=== PATIENT | female | born 1960 | race Caucasian/White ===

== ENCOUNTER 2018-10-24 14:55 | Observation (INO) ==
[2018-10-24] MEDS ORDERED: Sod Chloride 0.9% Inj 1,000 ML IV.SIG ONE (15:27)
--- NOTE | 2018-10-24 15:48 | ED ---
HPI General Chief Complaint: Recheck/Abnormal Lab/Rx Stated Complaint: Medical Time Seen by Provider: 10/24/18 15:27 Source: patient, family and EMS Mode of arrival: EMS Limitations: language barrier History of Present Illness HPI narrative: Patient is a 58-year-old female, past medical history cirrhosis, GERD, who presents with complaint of hypotension. Per report patient had a colonoscopy done today which was done for routine colon cancer screening. Her blood pressure prior to this being initiated was in the low 90s over 50s. During the procedure she did receive propofol and her blood pressure did drop into the 70s. EMS reports blood pressure in the 80s on their arrival and gave her approximately 500 cc fluid. The patient denies any chest pain, abdominal pain, shortness of breath. She feels well and normal but with a dry mouth. Her (whom is interpreting) states that she is acting herself. He states that her BP is normally in the 90s-low 100s systolic. She has been well prior to the procedure today. According to the paperwork, she did have a polypectomy today. complaint: Reports other Initial visit for: other Returns today for: other Symptoms since prior visit: Reports no new symptoms Associated symptoms: Reports none Related Data Home Medications Medication Instructions Recorded Confirmed alprazolam [Xanax] 0.25 mg PO HS 10/24/18 10/24/18 escitalopram oxalate [Lexapro] 5 mg PO DAILY 10/24/18 10/24/18 furosemide [Lasix] 40 mg PO DAILY 10/24/18 10/24/18 lactulose 20 g PO TID 10/24/18 10/24/18 levothyroxine 50 mcg PO DAILY 10/24/18 10/24/18 nadolol 40 mg PO DAILY 10/24/18 10/24/18 pantoprazole [Protonix] 40 mg PO DAILY 10/24/18 10/24/18 propranolol 10 mg PO BID 10/24/18 10/24/18 spironolactone 100 mg PO DAILY 10/24/18 10/24/18 Allergies Allergy/AdvReac Type Severity Reaction Status Date / Time No Known Allergies Allergy Unverified 10/19/18 09:29 Review of Systems ROS: all other systems reviewed are negative [facility] Medical History Medical History Cirrhosis (Acute) Social History Social History Substance History: No History of Abuse Second Hand Smoke Exposure: No Smoking Status: Current every day smoker Tobacco Type: Cigarettes How Often Do You Have a Drink Containing Alcohol: Never Recent Travel in [facility] within the Last 8 Weeks: No Recent Out of Country Travel within the Last 8 Weeks: No Immunization History Tetanus Immunization: Unsure Exam Narrative Exam Narrative: GENERAL: Well-appearing, elderly female in no acute distress SKIN: Focused skin assessment warm/dry. No rashes. HEAD: Atraumatic. Normocephalic. EYES: Pupils equal and round. No scleral icterus. No injection or drainage. ENT: No nasal bleeding or discharge. Mucous membranes pink and moist. NECK: Trachea midline. No JVD. CARDIOVASCULAR: Regular rate and rhythm. No murmur appreciated. Intact and equal peripheral pulses. Normal cap refill. RESPIRATORY: No accessory muscle use. Clear to auscultation. Breath sounds equal bilaterally. GASTROINTESTINAL: Abdomen soft, non-tender. Distended but at her baseline per the (she does have cirrhosis). Hepatic and splenic margins not palpable. MUSCULOSKELETAL: No obvious deformities. No clubbing. No cyanosis. No edema. NEUROLOGICAL: Awake and alert. No obvious cranial nerve deficits. Motor grossly within normal limits. Normal sensation. Normal speech. PSYCHIATRIC: Appropriate mood and affect; insight and judgment normal. Course Reevaluation(s) Reevaluation #1: Patient states she feels normal and wants to go home. Time: 19:05 Reevaluation #2: Patient's states that her BP is normally in the high 80s - low 90s and thus this is normal. They want to go home at this time. Time: 19:21 Initial Documented Vital Signs Temperature 98.8 F 10/24/18 15:22 Pulse Rate 79 10/24/18 15:22 Respiratory Rate 18 10/24/18 15:22 Blood Pressure 85/50 L 10/24/18 15:22 Last Documented Vital Signs Temperature 98.8 F 10/24/18 15:22 Pulse Rate 60 10/24/18 19:27 Respiratory Rate 16 10/24/18 19:27 Blood Pressure 80/50 L 10/24/18 19:27 Pulse Oximetry 96 10/24/18 19:27 Medical Decision Making MDM Narrative Medical decision making narrative: Patient is a 58 yof who presents with complaint of hypotension. She did her colonoscopy prep yesterday and has been NPO. BP in the 90s (her baseline) prior to colonoscopy. After receiving propofol, it decreased to the 70s. It is in the mid-80s on arrival here and she has no complaints at this time. She has been given fluid bolus to which she responded well. Labs and CT showed consolidation in the lungs with a UTI. Patient and were initially insistent on going home and did not want the original workup but eventually agreed to the workup (IV antibiotics, additional fluids) and to stay. She has been given rocephin and azithromycin in addition to additional fluids (as she'd not yet had 30 cc/kg). I spoke with Dr Small, passenger representative concrete wall grinder operator, whom agreed to the admission. Medical Screen Exam Complete: Yes Emergency Medical Condition: Yes Differential Diagnosis Differential Diagnosis: Differential diagnosis includes but is not limited to medication side effect, anemia, perforated viscus. Medical Records Medical records reviewed: Yes I reviewed the patient's medical records. Lab Data Result diagrams: 10/24/18 15:40 10/24/18 15:40 Lab Results 10/24/18 10/24/18 10/24/18 Range/Units 15:40 15:40 19:26 WBC 11.0 (4.0-11.0) th/mm3 RBC 3.09 L (4.00-5.30) mil/mm3 Hgb 11.8 D (11.6-15.3) gm/dL Hct 35.2 (35.0-46.0) % MCV 113.7 H (80.0-100.0) fL MCH 38.1 H (27.0-34.0) pg MCHC 33.5 (32.0-36.0) % RDW 15.1 (11.6-17.2) % Plt Count 179 D (150-450) th/mm3 MPV 10.5 (7.0-11.0) fL Prelim Diff (Auto) Manual diff required WBC Differential Manual diff final Seg Neuts % (Manual) 80 H (16-70) % Band Neuts % (Manual) 2 (0-6) % Lymphocytes % (Manual) 15 (9-44) % Monocytes % (Manual) 3 (0-8) % Abs Neuts (Manual) 9.0 H (1.8-7.7) th/mm3 Differential Comment . Toxic Granulation 2+ H (None) Toxic Vacuolation Present H (None) Platelet Estimate Normal (Normal) Platelet Morphology Normal (Normal) Ovalocytes 1+ H (None) Sodium 133 L (136-145) meq/L Potassium 4.6 (3.5-5.1) meq/L Chloride 103 (98-107) meq/L Carbon Dioxide 22.0 (21.0-32.0) meq/L Anion Gap 8 (5-15) meq/L BUN 23 H (7-18) mg/dL Creatinine 1.00 (0.50-1.00) mg/dL Estimated GFR 57 L (>89) mL/min Random Glucose 102 (74-106) mg/dL Calcium 6.8 L* D (8.5-10.1) mg/dL Calcium Adj for Albumin 8.8 (8.5-10.1) mg/dL Magnesium 1.8 (1.5-2.5) mg/dL Total Bilirubin 3.0 H (0.2-1.0) mg/dL AST 79 H (15-37) U/L ALT 17 (10-53) U/L Alkaline Phosphatase 364 H (45-117) U/L Troponin I Less than 0.02 L (0.02-0.05) ng/mL Total Protein 5.4 L D (6.4-8.2) g/dL Albumin 1.5 L (3.4-5.0) g/dL Lipase 100 (73-393) U/L Urine Color [place] (Yellw/Straw) Urine Clarity Clear (Clear) Urine pH 6.0 (5.0-8.5) Ur Specific [place] Greater than 1.060 H (1.002-1.035) Urine Protein Negative (Neg-Trace) mg/dL Urine Glucose (UA) Negative (Negative) mg/dL Urine Ketones Negative (Negative) mg/dL Urine Occult Blood Negative (Negative) Urine Nitrate Negative (Negative) Urine Bilirubin Negative (Negative) Urine Urobilinogen Less than 2 (Less than 2) mg/dL Ur Leukocyte Esterase Trace H (Negative) Urine RBC 2 (0-3) /hpf Urine WBC 20 H (0-5) /hpf Urine WBC Clumps Rare H (None) Ur Squamous Epith Cells <1 (0-5) /hpf Hyaline Casts 6 (0-3) /lpf Urine Mucus Few H (Occasional) /lpf Micro UA Comment Culture indicated Ur Microscopic Review Not Reportable Urine Culture Comments Culture indicated Imaging Data Radiologist's impression: Abdomen/Pelvis CT 10/24/18 15:27 CONCLUSION: 1. Cirrhotic liver with diffuse inhomogeneity and no discrete mass. 2. Moderate amount of ascitic fluid greatest along the lateral liver margin and pelvis. 3. Small to moderate right pleural effusion with mild consolidation in the right lung base. Discharge Plan Discharge Disposition Patient Disposition: ED Admit(ED Internal Use Only) Discharge Condition Condition: Serious Discharge Order Discharge Orders: ED Use Only Admit Order (Routine); Ordered 10/24/18 Ordered By: Leandra Carrasco Discharge Details Diagnosis: Acute UTI, Acute hypotension, Acute dehydration Physicians Team ED Provider: Leandra Carrasco Primary Care Provider: NON STAFF,PROVIDER Attending Provider: Lanre Small Status ED Status: Admitted Patient
[2018-10-24 16:07] LABS: Hematocrit 35.2 % (35.0-46.0); Hemoglobin 11.8 gm/dL (11.6-15.3); Mean Corpuscular HGB Conc 33.5 % (32.0-36.0); Mean Corpuscular Hemoglobin 38.1 pg (27.0-34.0); Mean Corpuscular Volume 113.7 fL (80.0-100.0); Mean Platelet Volume 10.5 fL (7.0-11.0); Platelet Count 179 th/mm3 (150-450); Red Blood Count 3.09 mil/mm3 (4.00-5.30); Red Cell Distribution Width 15.1 % (11.6-17.2)
--- NOTE | 2018-10-24 16:23 | CT ---
EXAM DATE: 10/24/2018 4:13 PM EST AGE/SEX: 58 years / Female INDICATIONS: Low blood pressure and bilateral leg pain after colonoscopy today CLINICAL DATA: This is the patient's initial encounter. Patient reports that signs and symptoms have been present for 1 day and indicates a pain score of 5/10. MEDICAL/SURGICAL HISTORY: Cirrhosis. None. ORAL CONTRAST: No oral contrast ingested. RADIATION DOSE: 8.29 CTDI (mGy) COMPARISON: No prior exams available for comparison. TECHNIQUE: Multiple contiguous axial images were obtained through the abdomen and pelvis following b olus infusion of 75 ml Omnipaque 350 (iohexol) nonionic water-soluble contrast as a single exam dos e. No oral contrast ingested. Using automated exposure control and adjustment of the mA and/or kV ac cording to patient size, radiation dose was kept as low as reasonably achievable to obtain optimal di agnostic quality images. DICOM format image data is available electronically for review and comparis on. FINDINGS: Lower Lungs: There is a small to moderate right pleural effusion with mild consolidation in the poste rior right lung base. Liver: The liver is cirrhotic with enlarged left lobe and smaller right lobe with lobular outer conto ur. There is diffuse mild heterogeneity with no discrete focal mass or ductal dilatation. There is a moderate amount of ascitic fluid surrounding the liver margin. The gallbladder is partially decompres sed. Spleen: Homogeneous density without enlargement. Pancreas: Unremarkable without mass or calcification. Kidneys: Normal in size and shape. No evidence of solid mass or hydronephrosis. Small cyst extending off the left kidney. Adrenal Glands: Unremarkable. Aorta: The aorta and proximal iliac vessels are grossly unremarkable without aneurysmal dilation. Bowel/Mesentery: No oral contrast was given limiting the sensitivity. The bowel loops are grossly unr emarkable. The cecum and sigmoid colon have a normal configuration. Abdominal Wall: Intact. Retroperitoneum: No evidence of adenopathy in the retrocrural, para-aortic, or deep pelvic regions. Bladder: Contours are smooth. Reproductive Organs: No abnormal masses or calcifications seen. 6 fluid is present in the pelvis quin[place] rounding portions of the uterus. Inguinal: The inguinal region is unremarkable without evidence of adenopathy. Bony Structures: Cynthia, degenerative change and scoliosis are present. CONCLUSION: 1. Cirrhotic liver with diffuse inhomogeneity and no discrete mass. 2. Moderate amount of ascitic fluid greatest along the lateral liver margin and pelvis. 3. Small to moderate right pleural effusion with mild consolidation in the right lung base. Electronically signed by: Aydin Luna MD 10/24/2018 4:21 PM EST
[2018-10-24 16:38] LABS: Alanine Aminotransferase 17 U/L (10-53); Albumin 1.5 g/dL (3.4-5.0); Alkaline Phosphatase 364 U/L (45-117); Anion Gap 8 meq/L (5-15); Aspartate Aminotransferase 79 U/L (15-37); Blood Urea Nitrogen 23 mg/dL (7-18); Calcium 6.8 mg/dL (8.5-10.1); Chloride 103 meq/L (98-107); Glomerular Filtration Rate 57 mL/min (>89); Glucose,Random 102 mg/dL (74-106); Lipase 100 U/L (73-393); Magnesium 1.8 mg/dL (1.5-2.5); Potassium 4.6 meq/L (3.5-5.1); Sodium 133 meq/L (136-145); Total Protein 5.4 g/dL (6.4-8.2)
[2018-10-24] MEDS ORDERED: Calcium Gluconate Inj 1 GM in Dextrose 5% in Water Inj 100 ML IV.SIG ONE ×2 (16:43)
[2018-10-24 16:55] LABS: Monocytes 3 % (0-8)
[2018-10-24 16:58] LABS: Lymphocytes 15 % (9-44); Toxic Granulation 2+
[2018-10-24 16:59] LABS: Platelet Estimate Normal (Normal); Platelet Morphology Normal (Normal); Toxic Vacuolation Present
[2018-10-24 17:01] LABS: Ovalocytes 1+
[2018-10-24] MEDS ORDERED: Sodium Chlor 0.9% Inj 500 ML IV.SIG SCH (19:00)
[2018-10-24 20:01] LABS: Bilirubin,Urine Negative (Negative); Clarity,Urine Clear (Clear); Color,Urine Amber (Yellw/Straw); Glucose,Urine (UA) Negative (Negative); Hyaline Casts,Urine 6 /lpf (0-3); Leukocyte Esterase,Urine Trace (Negative); Mucus,Urine Few /lpf (Occasional); Nitrite,Urine Negative (Negative); Squamous Epithelial Cell,Urine <1 /hpf (0-5)
[2018-10-24] MEDS ORDERED: Azithromycin Inj 500 MG in Sodium Chlor 0.9% Inj 250 ML IV.SIG ONE (20:11)
[2018-10-24] MEDS ORDERED: Sod Chloride 0.9% Inj 1,000 ML IV.SIG SCH (20:15)
[2018-10-24] MEDS ORDERED: Acetaminophen 325 MG Tablet PO PRN (21:15)
[2018-10-24] MEDS ORDERED: Morphine Sulfate Inj 2 MG/ML Vial IV.PUSH PRN (21:15)
[2018-10-24] MEDS ORDERED: Bisacodyl 10 MG Supp RECTAL PRN (21:15)
[2018-10-24] MEDS ORDERED: Temazepam 15 MG Capsule PO PRN (21:15)
--- NOTE | 2018-10-24 21:20 | P.HPCC ---
History of Present Illness Primary Care Physician: PROVIDER NON STAFF History of Present Illness: 58-year-old female, past medical history cirrhosis, GERD, who presents with complaint of hypotension. Per report patient had a colonoscopy done today which was done for routine colon cancer screening. Her blood pressure prior to this being initiated was in the low 90s over 50s. During the procedure she did receive propofol and her blood pressure did drop into the 70s. EMS reports blood pressure in the 80s on their arrival and gave her approximately 500 cc fluid. The patient denies any chest pain, abdominal pain, shortness of breath. She feels well and normal but with a dry mouth. Her states that she is acting herself. He states that her BP is normally in the 90s-low 100s systolic. She has been well prior to the procedure today. According to the paperwork, she did have a polypectomy today. Inpatient Certification: I certify that the inpatient services were ordered in accordance with Medicare regulations governing the order. This includes certification that hospital inpatient services are reasonable and necessary and in the case of services not specified as inpatient-only under 42 CFR 419.22(n), that they are appropriately provided as inpatient services in accordance to with the 2-midnight benchmark under 43 CFR 412.3(e) Estimated Total Length of Stay (Days): 5 Plans for Post Hospital Care: Not yet determined Review of Systems All other systems reviewed negative except as stated in HPI [facility] - History History Provided By: Patient - Medical History Medical History: Medical History (Last Reviewed 10/25/18 @ 00:27 by Glory Su RN) Anxiety Cirrhosis Depression GERD (gastroesophageal reflux disease) Hypokalemia Hypothyroidism - Surgical History Surgical History: Surgical History (Last Updated 10/25/18 @ 00:27 by Glory Su RN) H/O rectal polypectomy Hx of colonoscopy - Tobacco History Second Hand Smoke Exposure: No Tobacco Use In Past 30 Days: No Smoking Status: Current every day smoker Tobacco Type: Cigarettes - Alcohol History How Often Do You Have a Drink Containing Alcohol: Never - Substance Use History Substance History: No History of Abuse - Travel History Recent Travel in the [place] Within the Last 8 Weeks: No Recent Travel Out of the Country Within the Last 8 Weeks: No - Immunization History Tetanus Immunization: Unsure Medications and Allergies Active Medications: Active Medications Acetaminophen (Tylenol) 650 mg PO Q6H PRN PRN Reason: PAIN 1-10 AND/OR FEVER >101F Al Hydroxide/Mg Hydroxide (Milk Of Magnesia Liq) 30 ml PO Q12H PRN PRN Reason: Mild Constipation Albuterol (Duoneb Neb (Prn)) 1 ampul NEB Q2HR NEB PRN PRN Reason: WHEEZING Alprazolam (Xanax) 0.25 mg PO HS [facility] Bisacodyl (Dulcolax Supp) 10 mg RECTAL DAILY PRN PRN Reason: SEVERE CONSITIPATION Chlorhexidine Gluconate (Chlorhexidine 2% Cloth) 3 pack TOPICAL DAILY@0400 BHARAT Stop: 10/30/18 03:59 Chlorhexidine Gluconate (Chlorhexidine 2% Cloth) 3 pack TOPICAL DAILY@0400 PRN PRN Reason: Extra cloth needed Stop: 10/30/18 03:59 Heparin Sodium (Porcine) (Heparin Inj) 5,000 units SQ Q8H [facility] Sodium Chloride (Ns Inj) 1,000 mls @ 154 mls/hr IV.CONT .Q6H30M [facility] Azithromycin 500 mg/ Sodium (Chloride) 250 mls @ 250 mls/hr IV.SIG Q24H BHARAT Ceftriaxone Sodium 1,000 mg/ (Sodium Chloride) 100 mls @ 200 mls/hr IV.SIG Q24H BHARAT Lactulose (Lactulose Liq) 30 ml PO DAILY PRN PRN Reason: SEVERE CONSITIPATION Levothyroxine Sodium (Synthroid) 50 mcg PO DAILY [facility] Morphine Sulfate (Morphine Inj) 2 mg IV.PUSH Q2H PRN PRN Reason: PAIN SCALE 6 TO 10 Non-Formulary Medication (Escitalopram Oxalate [Lexapro]) 5 mg PO DAILY [facility] Ondansetron HCl (Zofran Inj) 4 mg IV.PUSH Q6H PRN PRN Reason: NAUSEA OR VOMITING Pantoprazole Sodium (Protonix) 40 mg PO DAILY [facility] Senna/Docusate Sodium ([place]-Colace) 1 tab PO BID [facility] Sennosides (Senokot) 17.2 mg PO Q12H PRN PRN Reason: Moderate Constipation Sodium Chloride (Ns Flush) 2 ml IV.FLUSH PRN PRN PRN Reason: FLUSH AFTER USING IV ACCESS Sodium Chloride (Ns Flush) 2 ml IV.FLUSH PRN PRN PRN Reason: FLUSH AFTER USING IV ACCESS Sodium Chloride (Ns Flush) 2 ml IV.FLUSH BID BHARAT Temazepam (Restoril) 15 mg PO HS PRN PRN Reason: INSOMNIA Allergies Allergy/AdvReac Type Severity Reaction Status Date / Time No Known Allergies Allergy Unverified 10/19/18 09:29 Home Medications Medication Instructions Recorded Confirmed Type alprazolam [Xanax] 0.25 mg PO HS 10/24/18 10/24/18 History escitalopram oxalate [Lexapro] 5 mg PO DAILY 10/24/18 10/24/18 History furosemide [Lasix] 40 mg PO DAILY 10/24/18 10/24/18 History lactulose 20 g PO TID 10/24/18 10/24/18 History levothyroxine 50 mcg PO DAILY 10/24/18 10/24/18 History nadolol 40 mg PO DAILY 10/24/18 10/24/18 History pantoprazole [Protonix] 40 mg PO DAILY 10/24/18 10/24/18 History propranolol 10 mg PO BID 10/24/18 10/24/18 History spironolactone 100 mg PO DAILY 10/24/18 10/24/18 History Results - Labs CBC & Chem 7: 10/25/18 03:56 10/25/18 03:56 Labs: Short CBC 10/24/18 Range/Units 15:40 WBC 11.0 (4.0-11.0) th/mm3 Hgb 11.8 D (11.6-15.3) gm/dL Hct 35.2 (35.0-46.0) % Plt Count 179 D (150-450) th/mm3 BMP 10/24/18 15:40 Sodium 133 L Potassium 4.6 Chloride 103 Carbon Dioxide 22.0 BUN 23 H Creatinine 1.00 Calcium 6.8 L* D Cardiac Enzymes 10/24/18 Range/Units 15:40 Troponin I Less than 0.02 L (0.02-0.05) ng/mL Liver Function 10/24/18 Range/Units 15:40 Total Bilirubin 3.0 H (0.2-1.0) mg/dL AST 79 H (15-37) U/L ALT 17 (10-53) U/L Alkaline Phosphatase 364 H (45-117) U/L Albumin 1.5 L (3.4-5.0) g/dL Urine 10/24/18 Range/Units 19:26 Urine Color [place] (Yellw/Straw) Urine Clarity Clear (Clear) Urine pH 6.0 (5.0-8.5) Ur Specific [place] Greater than 1.060 H (1.002-1.035) Urine Protein Negative (Neg-Trace) mg/dL Urine Glucose (UA) Negative (Negative) mg/dL - Imaging Impressions Abdomen/Pelvis CT 10/24/18 15:27 CONCLUSION: 1. Cirrhotic liver with diffuse inhomogeneity and no discrete mass. 2. Moderate amount of ascitic fluid greatest along the lateral liver margin and pelvis. 3. Small to moderate right pleural effusion with mild consolidation in the right lung base. Exam Vital signs: Vital Signs 10/24/18 15:22 10/24/18 19:27 Temperature 98.8 F Pulse Rate 79 60 Respiratory Rate 18 16 Blood Pressure 85/50 L 80/50 L Pulse Oximetry 96 Intake & Output 10/24/18 10/24/18 10/25/18 06:59 18:59 06:59 Intake Total 1000 / 1000 710 / 710 Balance 1000 / 1000 710 / 710 Weight 63.503 kg Intake: IV 1000 / 1000 710 / 710 Calcium Gluconate Inj 1 GM In 110 / 110 D5W Inj 100 ML @ 110 mls/hr IV. SIG ONCE ONE Rx#:[id number] NS Inj 1,000 ML @ Wide Open IV. 1000 / 1000 SIG BOLUS ONE Rx#:[id number] NS Inj 500 ML @ 1000 mls/hr IV. 500 / 500 SIG BOLUS BHARAT Rx#:[id number] Rocephin Inj 1,000 MG In NS Inj 100 / 100 100 ML @ 200 mls/hr IV.SIG ONCE ONE Rx#:[id number] - Constitutional no acute distress - Routine HEENT Exam Head: Present: normocephalic, atraumatic Eye: Present: EOMI, PERRL, normal accommodation ENT: Present: mucous membranes moist - Routine Neck Exam Present: supple, full ROM. Absent: JVD, carotid bruit - Routine Respiratory Exam Absent: accessory muscle use, rales, respiratory distress, rhonchi - Routine Cardiovascular Exam Present: RRR, S1, S2 - Routine Abdominal Exam Present: soft, normoactive bowel sounds - Routine Extremities Exam Absent: cyanosis, clubbing, edema - Routine Skin Exam Present: intact. Absent: cyanosis, erythema - Routine Neurological Exam Present: alert, oriented X3, moving all extremities Septic Shock Reassessment Septic shock perfusion: reassessment completed Caprini VTE Risk Assessment Caprini VTE Risk Assessment: Moderate/High Risk (score >= 2) Caprini Risk Assessment Model: Point Value = 1 Point Value = 2 Point Value = 3 Point Value = 5 Age 41-60 Minor surgery BMI > 25 kg/m2 Swollen legs Varicose veins or History of unexplained or recurrent spontaneous Oral contraceptives or hormone replacement Sepsis (< 1 month) Serious lung disease, including pneumonia (< 1 month) Abnormal pulmonary function Acute myocardial infarction Congestive heart failure (< 1 month) History of inflammatory bowel disease Medical patient at bed rest Age 61-74 Arthroscopic surgery Major open surgery (> 45 min) Laparoscopic surgery (> 45 min) Malignancy Confined to bed (> 72 hours) Immobilizing plaster cast Central venous access Age >= 75 History of VTE Family history of VTE Factor V Leiden Prothrombin [id number] Lupus anticoagulant Anticardiolipin antibodies Elevated serum homocysteine Heparin-induced thrombocytopenia Other congenital or acquired thrombophilia Stroke (< 1 month) Elective arthroplasty Hip, pelvis, or leg fracture Acute spinal cord injury (< 1 month) Prophylaxis Regimen: Total Risk Factor Score Risk Level Prophylaxis Regimen 0-1 Low Early ambulation 2 Moderate Order ONE of the following: *Sequential Compression Device (SCD) *Heparin 5000 units SQ BID 3-4 Higher Order ONE of the following medications: *Heparin 5000 units SQ TID *Enoxaparin/Lovenox 40 mg SQ daily (WT < 150 kg, CrCl > 30 mL/min) *Enoxaparin/Lovenox 30 mg SQ daily (WT < 150 kg, CrCl > 10-29 mL/min) *Enoxaparin/Lovenox 30 mg SQ BID (WT < 150 kg, CrCl > 30 mL/min) AND/OR *Sequential Compression Device (SCD) 5 or more Highest Order ONE of the following medications: *Heparin 5000 units SQ TID (Preferred with Epidurals) *Enoxaparin/Lovenox 40 mg SQ daily (WT < 150 kg, CrCl > 30 mL/min) *Enoxaparin/Lovenox 30 mg SQ daily (WT < 150 kg, CrCl > 10-29 mL/min) *Enoxaparin/Lovenox 30 mg SQ BID (WT < 150 kg, CrCl > 30 mL/min) AND *Sequential Compression Device (SCD) Assessment and Plan - Assessment and Plan Plan: Hypotension -IV fluid replacement -IV albumin in setting of liver cirrhosis -Telemetry -Attempt to avoid vasopressors with proper IV fluid resuscitation -Follow-up blood cultures -Sepsis less likely in the setting of normal white count, no history of fever, cough, chills or any other symptoms Cirrhosis -Hold spironolactone and propranolol due to borderline hypotension Pneumonia -Questionable consolidation on CXR -Rocephin/Zithromax empirically Anxiety/Depression -Alprazolam (Xanax) 0.25 mg PO HS BHARAT -Escitalopram Oxalate (Lexapro) 5 mg PO DAILY BHARAT -Temazepam (Restoril) 15 mg PO HS PRN GERD -Pantoprazole Hypothyroidism -Levothyroxine Level 2 Transferred to hospitalist service in a.m.
[2018-10-24] MEDS: Sod Chloride 0.9% Inj 1,000 ML IV.CONT SCH (21:30)
[2018-10-24] MEDS: Heparin - SQ 10,000 UNITS/ML Vial SQ SCH (22:01)
[2018-10-25] MEDS: Albumin Human 5% Inj 500 ML IV.SIG SCH ×2 (02:55→09:49)
[2018-10-25] MEDS ORDERED: Chlorhexidine Gluconate 2% 1 Pack (2 Cloths) TOPICAL PRN (04:00)
[2018-10-25 04:16] LABS: Baso % (Auto) 0.3 % (0.0-2.0); Eos % (Auto) 0.3 % (0.0-4.0); Hematocrit 37.1 % (35.0-46.0); Hemoglobin 12.2 gm/dL (11.6-15.3); Lymph # (Auto) 3.5 th/mm3 (1.0-4.8); Lymph % (Auto) 28.8 % (9.0-44.0); Mean Corpuscular HGB Conc 32.8 % (32.0-36.0); Mean Corpuscular Hemoglobin 37.4 pg (27.0-34.0); Mean Corpuscular Volume 113.8 fL (80.0-100.0); Mean Platelet Volume 10.3 fL (7.0-11.0); Mono # (Auto) 0.7 th/mm3 (0.0-0.9); Mono % (Auto) 5.7 % (0.0-8.0); Neut # (Auto) 7.8 th/mm3 (1.8-7.7); Neut % (Auto) 64.9 % (16.0-70.0); Platelet Count 184 th/mm3 (150-450); Red Blood Count 3.26 mil/mm3 (4.00-5.30)
[2018-10-25 04:40] LABS: Albumin 1.7 g/dL (3.4-5.0); Calcium 7.2 mg/dL (8.5-10.1); Carbon Dioxide 19.3 meq/L (21.0-32.0); Potassium 4.4 meq/L (3.5-5.1); Total Protein 5.8 g/dL (6.4-8.2)
[2018-10-25] MEDS: Chlorhexidine Gluconate 2% 1 Pack (2 Cloths) TOPICAL SCH (04:40)
[2018-10-25] MEDS: Sod Chloride 0.9% Inj 1,000 ML IV.CONT SCH ×2 (04:40→11:15)
[2018-10-25] MEDS: Heparin - SQ 10,000 UNITS/ML Vial SQ SCH ×3 (05:10→21:47)
[2018-10-25] MEDS: Levothyroxine 50 MCG Tablet PO SCH (05:10)
[2018-10-25 05:11] LABS: Platelet Estimate Normal (Normal); Platelet Morphology Normal (Normal)
[2018-10-25 05:12] LABS: Burr Cells 1+
--- NOTE | 2018-10-25 07:06 | ECG ---
Date Performed: 10/24/2018 Time Performed: 16:52:35 PTAGE: 58 years EKG: Baseline artifact present Sinus rhythm LOW QRS VOLTAGE Nonspecific T wave changes POSSIBLE ANTERIOR MYOCARDIAL INFARCTION ABNORMAL ECG NO PREVIOUS TRACING DOCTOR: Escobar Griggs Interpretating Date/Time 10/25/2018 07:04:34
[2018-10-25] MEDS: Senna/Docusate Sodium 8.6/50 MG Tablet PO SCH ×3 (09:50→21:48)
[2018-10-25] MEDS: Escitalopram 10 MG Tablet PO SCH (09:50)
--- NOTE | 2018-10-25 12:31 | P.PNIM ---
Subjective Interval history: pt lying in no distress. Physical Exam Vital signs: Last Vital Signs Temp 98.2 F 10/25/18 08:00 Pulse 71 10/25/18 11:00 Resp 17 10/25/18 11:00 BP 89/53 L 10/25/18 11:00 Pulse Ox 99 10/25/18 11:00 Narrative: heart reg lung diminished right base abd distended. nt ext no edema Results Labs CBC & Chem 7: 10/25/18 03:56 10/25/18 03:56 Assessment and Plan Assessment (1) Acute hypotension: Code(s): I95.9 - Hypotension, unspecified Status: Acute (2) Cirrhosis of liver: Code(s): K74.60 - Unspecified cirrhosis of liver Status: Acute Plan 1. cirrhosis liver 2. acute on chronic hypotension 3. ascites and associated right pleural effusion with compressive atelectasis Pt was sent to ED from GI lab after routing colonoscopy her sbp was 70s after anesthesia. I'm told baseline is 80s-90s sbp. Pt was admitted in ICU overnight and given alot of IVF She was emperically given abx We had a animal humane agent supervisor assist with questioning the patient and explaining the diagnosis and plan. I offered her thoracentesis and paracentesis if she was feeling sob or more distended. She at the moment seemed to decline and will f/u outpt for these procedures as needed. She had paracentesis on 10/19 7500cc. I will stop the abx Family I'm told is on the way. we will stop ivf and ask PT to ambulate her and if stable then ok to dc home and f/u GI. Progress Note: Quality VTE Deep Vein Thrombosis/Pulmonary Embolism Present on Admission: No
[2018-10-25] MEDS ORDERED: Albumin Human 25% Inj 150 ML IV.SIG ONE (15:47)
--- NOTE | 2018-10-25 15:51 | US ---
EXAM DATE: 10/25/2018 3:40 PM EST AGE/SEX: 58 years / Female INDICATIONS: Ascites. CLINICAL DATA: This is the patient's subsequent encounter. Patient reports that signs and symptoms h ave been present for 3 weeks and indicates a pain score of 3/10. MEDICAL/SURGICAL HISTORY: Hypothyroidism. Cirrhosis. GERD. Anxiety. MRSA. Hypotension. . Rect al Polypectomy. Colonoscopy. COMPARISON: [facility] [place] ABDOMEN & PELVIS W CONTRAST, 10/24/2018. . FLUID: Total volume of 5600 cc of clear, yellow fluid was removed. Fluid was discarded. Paracentesis was the rapeutic only. . . TECHNIQUE: Ultrasound guidance for abdominal paracentesis. Paracentesis. The risks, benefits, and alternatives to ultrasound guided paracentesis were explained to the patient in detail including the risk of bleeding and infection. Written and verbal informed consent was obt ained. With the patient on the ultrasound table, ultrasound imaging was used to select the most appropriate approach for paracentesis. Overlying skin was prepped and draped in the usual sterile fashion and wi th a local anesthetic, a dermatotomy was made with an 11 blade scalpel. A 6 Arabic [id number] ca theter was introduced into the peritoneal cavity and fluid was collected. Post procedure scanning reveals no hematoma or other complication. The patient tolerated the procedu re well and left the ultrasound suite in stable condition. FINDINGS: Adequate fluid for paracentesis. CONCLUSION: 1. Uncomplicated paracentesis. Electronically signed by: Vivek Ramirez MD Board Certified Radiologist 10/25/2018 3:49 PM PATRICIA Moncada
[2018-10-25] MEDS ORDERED: Azithromycin Inj 500 MG in Sodium Chlor 0.9% Inj 250 ML IV.SIG SCH (20:00)
[2018-10-25] MEDS ORDERED: ALPRAZolam 0.25 MG Tablet PO SCH (21:00)
[2018-10-26] MEDS: Chlorhexidine Gluconate 2% 1 Pack (2 Cloths) TOPICAL SCH (03:19)
[2018-10-26] MEDS: Heparin - SQ 10,000 UNITS/ML Vial SQ SCH ×2 (06:50→15:27)
[2018-10-26] MEDS: Levothyroxine 50 MCG Tablet PO SCH (06:51)
--- NOTE | 2018-10-26 09:43 | P.PNIM ---
Subjective Interval history: no new events overnight her dc was held due to family request for snf she is very weak and not ambulating at home. Physical Exam Vital signs: Last Vital Signs Temp 97.8 F 10/26/18 04:00 Pulse 77 10/26/18 04:00 Resp 16 10/26/18 04:00 BP 100/60 10/26/18 04:00 Pulse Ox 93 L 10/26/18 04:00 Narrative: heart reg lung diminished right base abd soft. bs ext no edema Results Labs CBC & Chem 7: 10/25/18 03:56 10/25/18 03:56 Assessment and Plan Assessment (1) Acute hypotension: Code(s): I95.9 - Hypotension, unspecified Status: Acute (2) Cirrhosis of liver: Code(s): K74.60 - Unspecified cirrhosis of liver Status: Acute Plan 1. cirrhosis liver 2. acute on chronic hypotension 3. ascites and associated right pleural effusion with compressive atelectasis Pt was sent to ED from GI lab after routing colonoscopy her sbp was 70s after anesthesia. I'm told baseline is 80s-90s sbp. Pt was admitted in ICU overnight and given alot of IVF She was emperically given abx We had a automation engineering manager assist with questioning the patient and explaining the diagnosis and plan. I offered her thoracentesis and paracentesis if she was feeling sob or more distended. She had paracentesis on 10/19 7500cc. We performed another therapeutic paracentesis on 10/25. clear fluid and 5600cc removed abx stopped. no proof of active infection I spoke to her [employer] Manager. She says the pt has etoh related cirrhosis and is very weak at home for several weaks and not ambulating. Pt family requested snf and dc held yesterday. I spoke with CM who is working on snf for PT due to general weakness and inability to ambulate. PT eval today. cont her diuretics. her bb held due to lower bp. readdress outpt. Progress Note: Quality VTE Deep Vein Thrombosis/Pulmonary Embolism Present on Admission: No
[2018-10-26] MEDS: Escitalopram 10 MG Tablet PO SCH (09:58)
[2018-10-26] MEDS: Senna/Docusate Sodium 8.6/50 MG Tablet PO SCH (09:59)
[2018-10-26 18:36] VITALS: BP 102/68; PULSE 91; RESP 14; TEMP 98; O2SAT 96
== END 2018-10-26 20:50 ==
LOC: NEPE 14:55 → NEDA 20:23 → INTOOBSV 20:23 → HIMC 10-25 04:05 → N04 10-25 17:32
PROVIDERS: ADMIT Hospitalist; ATTEND Hospitalist